=== PATIENT | male | born 1955 | race Caucasian/White ===

== ENCOUNTER → 2021-09-09 | Day surgery (SDC) | payer OTHER ==
[~2021-09-09] VITALS: Ht 177.8 cm; Wt 80.3 kg
[~2021-09-09] MED LIST: ASPIRIN EC81 MG PO; CIALIS5 MG PO; COMBIGAN EYE DRO5 ML OU; LIPITOR 10MG TA10 MG PO; PRILOSEC20 MG PO; TRAVATAN Z5 ML OU; XALATAN2.5 ML OU; ZOLOFT50 MG PO
[2021-09-09 08:06] LABS: HCT 43.9 % (42.0-52.0); HGB 14.4 g/dl (13.2-18.0); MCH 28.7 pg (25.0-31.0); MCHC 32.8 g/dL (32.0-36.0); MCV 87.6 fL (78.0-100.0); MPV 10.1 fL (6.0-9.5); RBC 5.01 M/uL (4.70-6.00); RDW 12.5 % (11.5-14.0); WBC 8.2 K/uL (4.0-10.5)
[2021-09-09 08:28] LABS: ALBUMIN 4.2 g/dL (3.4-5.0); BILIRUBIN - TOTAL 0.6 mg/dL (0.2-1.0); BUN/CREAT RATIO (CALC) 23.8 RATIO; CREATININE 1.01 mg/dL (0.67-1.17); GLOBULIN (CALCULATION) 3.2 g/dL; TOTAL PROTEIN 7.4 g/dL (6.4-8.2)
[2021-09-09 09:43] LABS: POTASSIUM 3.6 mmol/L (3.5-5.1)
== END | disposition home or self-care (01) ==
LOC: FAS 07:35
PROVIDERS: Surgery
DX: D12.4 Benign neoplasm of descending colon (principal); K29.70 Gastritis, unspecified, without bleeding; K20.90 Esophagitis, unspecified without bleeding; E78.5 Hyperlipidemia, unspecified; K21.9 Gastro-esophageal reflux disease without esophagitis
CPT/HCPCS: 36415; 80053; J1610; J2250; J2704; J7120